=== PATIENT | male | born 1970 | race Caucasian/White ===

== ENCOUNTER 2016-08-26 10:41 | Day surgery (SDC) | payer BC, SELFPAY ==
[~2016-08-26 10:41] MED LIST: DIPRIVAN 200 MG/20 ML IV ONE; Ketamine HCl 50 MG/ML IV ONE; Versed 2 MG/2 ML Injection IV ONE
[2016-08-26] MEDS ORDERED: Lactated Ringers 1,000 ML IV ONE (10:45)
[2016-08-26] MEDS ORDERED: Lactated Ringers 1,000 ML IV SCH (11:00)
[2016-08-26 15:29] VITALS: BP 146/110; PULSE 79; O2SAT 98
--- NOTE | 2016-08-27 14:20 | OP ---
SURGERY DATE: 08/26/16 SURGERY TIME: 1339 PREOPERATIVE DIAGNOSIS: 1. DYSPHAGIA. POSTOPERATIVE DIAGNOSIS: 1. DYSPHAGIA. PROCEDURE: 1. EGD with balloon dilatation to size 25. SURGEON: Dakotah Hanson M.D. ANESTHESIA: MAC. COMPLICATIONS: None. CONDITION: Stable. INDICATION: 46 y/o with dysphagia. OPERATIVE PROCEDURE: Taken to endoscopy. Left lateral decubitus position. After suitable sedation obtained, scope introduced. He was a robust gentleman. He took a fair amount of anesthetic for MAC. The scope was tolerated satisfactory. There was a clear stricture of the esophagogastric junction which would not allow the scope. The size 50 balloon was taken up to the first stage. At 25, it was left there at 2 minutes. This had satisfactory retracture. There was a little bit of oozing. It was felt prudent to stop at this point today. The scope was then able to be passed. Fundus, body, antrum satisfactory. Pylorus satisfactory. Duodenal bulb satisfactory. Scope withdrawn. About a size 30-34 Finnish aperture was present at the esophagogastric junction at this time. Patient tolerated the procedure satisfactory with no complaints.
== END 2016-08-26 15:20 | disposition home or self-care (01) ==
LOC: SDC 10:41
PROVIDERS: ATTEND Surgery
PROC: 0D758ZZ Dilation of Esophagus, Via Natural or Artificial Opening Endoscopic (ICD-10-PCS; principal; 2016-08-26)
DX: R13.10 Dysphagia, unspecified (principal)
CPT/HCPCS: 00740; C1726; J2250; J2704

== ENCOUNTER 2016-11-25 10:03 | Day surgery (SDC) | payer BC, SELFPAY ==
--- NOTE | 2016-11-23 14:45 | HP ---
DATE OF SURGERY: 11/25/2016 ADMISSION DIAGNOSIS: Dysphasia, probable stricture. ANTICIPATED PROCEDURE: EGD with dilatation. HISTORY OF PRESENT ILLNESS: PAST MEDICAL HISTORY: ALLERGIES: NONE. MEDICATIONS: None. PAST SURGICAL HISTORY: None. SOCIAL HISTORY: Positive tobacco. Negative ETOH. FAMILY HISTORY: Negative. PHYSICAL EXAMINATION: VITAL SIGNS: Normal. CHEST: Clear. COR: Regular. IMPRESSION: Difficulty swallowing. PLAN: EGD possible dilatation.
[~2016-11-25 10:03] MED LIST changes: -Ketamine HCl 50 MG/ML IV ONE
[2016-11-25] MEDS ORDERED: Lactated Ringers 1,000 ML IV ONE (10:18)
[2016-11-25] MEDS ORDERED: Lactated Ringers 1,000 ML IV SCH (10:30)
[2016-11-25 15:16] VITALS: BP 158/83; PULSE 76; O2SAT 94
--- NOTE | 2016-11-26 08:05 | OP ---
SURGERY DATE/TIME: 11/25/2016 1325 PREOPERATIVE DIAGNOSIS: Dysphagia. POSTOPERATIVE DIAGNOSIS: Stricture. PROCEDURE: EGD with balloon dilatation with an director [employer] systems size 20 two-phase tube for one minute. SURGEON: Dakotah Hanson M.D. ANESTHESIA: MAC. COMPLICATIONS: None. CONDITION: Stable. INDICATION: The patient has known stricture previously dilated. DESCRIPTION OF PROCEDURE: Taken to surgery. MAC sedation provided. The scope introduced. Three cold biopsies were taken of the gastroesophageal junction. This was about a size 24, a size 20 director enterprise systems was chosen. Fundus, body, antrum, pylorus, duodenal bulb, second portion satisfactory. The scope withdrawn. There was a stricture that was visible from the retrograde view also. Three medical center representative biopsies of the slightly elevated tissue at the gastroesophageal junction were taken and submitted. Geriatric Physical Therapist was then placed. It was then insufflated to phase 1, insufflated to phase 2 for one minute. I believe the esophageal diameter at this time was about 40. The scope withdrawn. Mechanically it looked satisfactory.
== END 2016-11-25 15:00 | disposition home or self-care (01) ==
LOC: SDC 10:03
PROVIDERS: ATTEND Surgery
PROC: 0D748ZZ Dilation of Esophagogastric Junction, Via Natural or Artificial Opening Endoscopic (ICD-10-PCS; principal; 2016-11-25)
PROC: 0D748ZZ Dilation of Esophagogastric Junction, Via Natural or Artificial Opening Endoscopic (ICD-10-PCS; 2016-11-25)
DX: K22.2 Esophageal obstruction (principal); R13.10 Dysphagia, unspecified
CPT/HCPCS: 00740; 36415; 87081; 88305; C1726; J2250; J2704

== ENCOUNTER 2017-09-19 05:48 | Day surgery (SDC) | payer BC ==
[2017-09-19] MEDS ORDERED: DIPRIVAN 200 MG/20 ML IV ONE (05:49)
[2017-09-19] MEDS ORDERED: Lactated Ringers 1,000 ML IV SCH (06:00)
[2017-09-19 08:25] VITALS: O2SAT 92
[2017-09-19 08:45] VITALS: BP 146/70; PULSE 68
--- NOTE | 2017-09-19 11:42 | OP ---
SURGERY DATE/TIME: 09/19/2017716 PREOPERATIVE DIAGNOSIS: Left lower quadrant abdominal pain. POSTOPERATIVE DIAGNOSIS: Normal colon. PROCEDURE: Colonoscopy. SURGEON: Dr. Zhang. ANESTHESIA: MAC. Medications given by anesthesia department. HISTORY: The patient is a 47 year-old white male patient who reports that he has previously had upper and lower endoscopy and reports he has been having left lower quadrant abdominal pain which has been attributed to diverticulosis. The patient was felt the need to have endoscopic evaluation. He was appraised of the risks of the procedure including the risk of perforation, phlebitis, untoward reaction to medication, bleeding and missed lesions. The patient verbalized his understanding and desired to have the procedure performed. DESCRIPTION OF PROCEDURE: The patient was given the medications by the anesthesia department. He had continuous pulse oximetry, ECG monitoring, intermittent blood pressure monitoring and tidal CO2 monitoring during the examination. He was placed in the left lateral decubitus position. A digital rectal examination was performed and revealed normal anal sphincter tone and no masses and normal prostate. The flexible Olympus pediatric colonoscope was used to intubate the rectum. A view of the colon was developed sequentially to the cecum. Upon insertion and withdrawal, including a retroflex view in the rectum, no mucosal lesions were encountered. Specifically there was absent noted any significant diverticula. The scope was removed from the patient who tolerated the procedure well and was sent back to OP recovery in good condition. The prep was noted to be good.
== END 2017-09-19 08:35 | disposition home or self-care (01) ==
LOC: SDC 05:48
PROVIDERS: ATTEND Family Medicine
DX: R10.32 Left lower quadrant pain (principal)
CPT/HCPCS: J2704

== ENCOUNTER 2018-03-11 08:44 | Emergency (ER) | payer BC ==
[2018-03-11] MEDS ORDERED: TETRACAINE 0.5% STERI-UNIT SOL OP ONE (09:00)
[2018-03-11] MEDS ORDERED: Eye-Stream Solution ONE (09:00)
[2018-03-11] MEDS ORDERED: Fluor-I-Strip/Ful-Flo OP ONE ×2 (09:00→09:01)
[2018-03-11] MEDS ORDERED: Eye-Stream Solution OP ONE (09:01)
[2018-03-11] MEDS ORDERED: TETRACAINE 0.5% STERI-UNIT SOL OP STA (09:01)
[2018-03-11 09:10] VITALS: BP 153/102; PULSE 87; O2SAT 94
[2018-03-11] MEDS ORDERED: Ciloxan OPHTH OP ONE (09:15)
--- NOTE | 2018-03-11 09:25 | ERPHSYRPT ---
- History of Present Illness Time Seen by Provider: 03/11/18 09:02 Source: patient Exam Limitations: no limitations Patient Subjective Stated Complaint: woke up with left eye irritated. unknown injury Triage Nursing Assessment: alert and oriented. left eye red and irritated. denies injury. MARY Physician History: This is a 47-year-old white male with history of diverticulitis. He arrives with complaint of pain in his left eye feels as if there is a foreign body in his left eye symptoms since waking up this morning. Patient denies obvious injury he states he has not been running machines. Patient denies vision changes. Past medical history is positive for diverticulitis. Past surgical history negative. Social history positive for tobacco use Timing/Duration: today Location: left eye Severity: moderate Apparent Injury: no Associated Symptoms: pain, redness, foreign body sensation Visual Assistive Devices: None Chemical Exposure: No Trauma: No Welding Arc/Tanning Bed Exposure: No Allergies/Adverse Reactions: No Known Drug Allergies Allergy (Verified 09/15/17 17:56) Hx Tetanus, Diphtheria Vaccination/Date Given: Yes (unknown) Hx Influenza Vaccination/Date Given: No Hx Pneumococcal Vaccination/Date Given: No Immunizations Up to Date: (unknown) - Review of Systems Constitutional: No Fever, No Chills Eyes: Eye Pain, Eye Redness, Tearing, Foreign Body Sensation, Other (foreign- body sensation left eye), No Discharge, No Itchy, No Photophobia, No Vision Changes, No Double Vision Ears, Nose, & Throat: No Symptoms Respiratory: No Cough, No Dyspnea Cardiac: No Chest Pain, No Edema, No Syncope Abdominal/Gastrointestinal: No Abdominal Pain, No Nausea, No Vomiting, No Diarrhea Genitourinary Symptoms: No Dysuria Musculoskeletal: No Back Pain, No Neck Pain Skin: No Rash Neurological: No Dizziness, No Focal Weakness, No Sensory Changes Psychological: No Symptoms Endocrine: No Symptoms All Other Systems: Reviewed and Negative - Past Medical History Pertinent Past Medical History: Yes Neurological History: No Pertinent History ENT History: No Pertinent History Cardiac History: No Pertinent History Respiratory History: No Pertinent History Endocrine Medical History: No Pertinent History Musculoskeletal History: No Pertinent History GI Medical History: Diverticulitis History: No Pertinent History Psycho-Social History: No Pertinent History Male Reproductive Disorders: No Pertinent History Other Medical History: difficulty swallowing - Past Surgical History Past Surgical History: Yes Neuro Surgical History: No Pertinent History Cardiac: No Pertinent History Respiratory: No Pertinent History Gastrointestinal: No Pertinent History Genitourinary: No Pertinent History Musculoskeletal: No Pertinent History Male Surgical History: No Pertinent History Other Surgical History: egd with dilatation - Social History Smoking Status: Never smoker Exposure to second hand smoke: No Drug Use: none Patient Lives Alone: No - Nursing Vital Signs Nursing Vital Signs: Initial Vital Signs Temperature 98.2 F 03/11/18 09:01 Pulse Rate 87 03/11/18 09:01 Respiratory Rate 18 03/11/18 09:01 Blood Pressure 153/102 03/11/18 09:01 O2 Sat by Pulse Oximetry 94 L 03/11/18 09:01 Pain Scale Pain Intensity 5 - Physical Exam General Appearance: mild distress Vision Acuity Degree Evaluation Phase: Uncorrected Vision Acuity Right Eye: 20/20 Vision Acuity Left Eye: 20/20 Eye Exam: left eye: conjunctival inflammation, bilateral eye: PERRL, EOMI, other (eyes PERRLA, EOMI.fundi are unremarkable left sclera mildly erythematous left conjunctiva is erythematous both lids everted left eye. No foreign bodies, left eye stained with fluorosceine, no corneal abrasions) Ears, Nose, Throat Exam: normal ENT inspection Neck Exam: normal inspection Respiratory Exam: normal breath sounds Cardiovascular Exam: regular rate/rhythm Gastrointestinal Exam: soft, normal bowel sounds, No tenderness Extremity Exam: normal inspection, normal range of motion Neurologic: alert, oriented x 3, cooperative, life insurance agent II-XII nml as tested, normal mood/affect Skin Exam: normal color SpO2 Interpretation: normal (94%) SpO2: 94 Oxygen Delivery: Room Air - Course Nursing assessment & vital signs reviewed: Yes Ordered Tests: Active Orders 24 hr Category Date Time Status Visual Acuity STAT Care 03/11/18 09:01 Active Medication Summary Discontinued Medications Generic Name Dose Route Start Last Admin Trade Name Freq PRN Reason Stop Dose Admin Ciprofloxacin 2.5 ml 03/11/18 09:15 Ciloxan Ophth OP 03/11/18 09:16 STAT ONE Eye Irrigation Solution Confirm 03/11/18 09:00 Eye-Stream Solution Administered 03/11/18 09:01 Dose 30 ml .ROUTE .STK-MED ONE Eye Irrigation Solution 15 ml 03/11/18 09:01 03/11/18 09:28 Eye-Stream Solution OP 03/11/18 09:02 15 ml STAT ONE Administration Fluorescein Sodium Confirm 03/11/18 09:00 Cvnnj-I-Vpcab/Ful-Ronnie Administered 03/11/18 09:01 Dose 1 mg OP .STK-MED ONE Fluorescein Sodium 1 mg 03/11/18 09:01 03/11/18 09:28 Ucltk-F-Yhakd/Ful-Ronnie OP 03/11/18 09:02 1 mg STAT ONE Administration Tetracaine HCl Confirm 03/11/18 09:00 Tetracaine 0.5% Steri-Unit Tracy Administered 03/11/18 09:01 Dose 4 ml OP .STK-MED ONE Tetracaine HCl 4 ml 03/11/18 09:01 03/11/18 09:29 Tetracaine 0.5% Steri-Unit Tracy OP 03/11/18 09:02 4 ml STAT STA Administration - Progress Progress: improved Progress Note: 03/11/18 09:22 47-year-old white male who arrives with complaint of foreign body sensation pain in the left eye erythematous to the left eye. Patient states this has been going on since awaking this morning. He denies any injury to his eye he states he has not been running any machines. Patient states he rinsed his eye and put Visine in his left eye prior to arrival. On arrival Vision is checked by the patient's nurse vision is 20/20 bilaterally. Eyes PERRLA, EOMI fundi are unremarkable. Both eyes are soft with palpation through lids, Left sclera mildly injected left conjunctiva erythematous Both lids are everted left eye no foreign bodies are noted. Left eye anesthetized with 0.5% tetracaine to facilitate examination. Left eye stained with flouriscene, no corneal abrasions are noted. Left eye rinsed with sterile eyewash solution. Ciloxan drops ordered left eye. - Departure Time of Disposition: 09:25 Departure Disposition: Home Clinical Impression: foreign-body sensation left eye Conjunctivitis Qualifiers: Conjunctivitis type: acute Acute conjunctivitis type: bacterial Laterality: left Qualified Code(s): H10.32 - Unspecified acute conjunctivitis, left eye Condition: Fair Critical Care Time: No Referrals: CHARLEEN MARR [Primary Care Provider] - Additional Instructions: Return home. Ciloxan drops 0.3% one to 2 drops left eye 4 times a day 5 days. [place] as prescribed. Follow-up with your family doctor, air conditioning insulation installer, or customer support analyst if symptoms are worse, no better by tomorrow or persist longer than 48 hours. Return for acute distress or for severe symptoms. drive home with windows rolled up in the car. No reading, no TV watching, no computers, avoid eyestrain. Prescriptions: Hydrocodone/Acetaminophen [[place] 5-325 Tablet] 1 tab PO Q4-6HPRN PRN #10 tablet MDD 6 tablets PRN Reason: Pain
[2018-03-11] MEDS ORDERED: Ciloxan OPHTH ONE (09:30)
== END 2018-03-11 09:43 | disposition home or self-care (01) ==
LOC: ED 08:44
DX: H10.32 Unspecified acute conjunctivitis, left eye (principal); T15.82XA Foreign body in other and multiple parts of external eye, left eye, initial encounter
CPT/HCPCS: 99283; A9270-GY

== ENCOUNTER 2021-08-16 07:52 | Emergency (ER) | payer BC ==
[2021-08-16] MEDS ORDERED: Hydromorphone 1 mg/ml Injection IV ONE (08:06)
[2021-08-16] MEDS ORDERED: Reglan 10 MG/2 ML IV ONE (08:06)
[2021-08-16] MEDS ORDERED: Sodium Chloride 0.9% 1000 ML 1,000 ML IV STA (08:06)
[2021-08-16] MEDS ORDERED: Hydromorphone 1 mg/ml Injection ONE (08:27)
[2021-08-16] MEDS ORDERED: Reglan 10 MG/2 ML ONE (08:27)
[2021-08-16] MEDS ORDERED: Sodium Chloride 0.9% 1000 ML 1,000 ML ONE (08:27)
[2021-08-16 08:31] LABS: Absolute Neutrophil Ct (ANC) 9.33 (1.4-6.9); Basophil (Absolute #) 0.05 (0-0.4); Eosinophil % 2.5 % (0.00-5.0); Eosinophil (Absolute #) 0.31 (0-0.5); Hematocrit 45.9 % (42-50); Hemoglobin 15.8 gm/dl (12.5-18.0); Lymphocyte (Absolute #) 1.76 (1.0-4.6); Lymphocytes % 14.1 % (24.0-44.0); Mean Cell Volume 93.1 fl (78-100); Mean Corpuscular Hgb Concent. 34.4 g/dl (32-36); Mean Platelet Volume 9.9 fl (7.5-11.0); Monocyte (Absolute #) 1.05 (0.0-1.3); Monocytes % 8.4 % (0.0-12.0); Neutrophil % 74.6 % (36.0-66.0); Platelet Count 214 K/mm3 (150-450); Red Blood Count 4.93 M/mm3 (4.1-5.6); Red Cell Distribution Width 13.3 % (11.5-14.0); White Blood Count 12.5 K/mm3 (4.0-10.5)
[2021-08-16 08:36] LABS: Appearance CLEAR (CLEAR); Bilirubin NEGATIVE (NEGATIVE); Dipstick done @ ? MAIN LAB; Glucose NEGATIVE (NEGATIVE); Ketones NEGATIVE (NEGATIVE); Nitrite NEGATIVE (NEGATIVE); Protein,Urine Dip NEGATIVE (Negative); RBC NEGATIVE Ery/ul (0-5); Specific Gravity 1.025 (1.005-1.025); Urobilinogen 0.2 mg/dL (0-1)
[2021-08-16 08:37] LABS: INR 1.18 (0.8-3.0); PROTIME 13.9 SECONDS (9.4-12.5)
--- NOTE | 2021-08-16 08:38 | ERPHSYRPT ---
- History of Present Illness Time Seen by Provider: 08/16/21 08:00 Historian: patient Exam Limitations: no limitations Patient Subjective Stated Complaint: pt here for lower left abd pain and scrotal pain, no fever, no nausea, states was constipated but had bm yesterday Triage Nursing Assessment: pt alert, resp easy, skin w/d/p, abd soft ,large , round abd, Physician History: Patient is a 51-year-old white male who yesterday developed pain in his lower abdomen which radiated to the testicles. He also had pressure around the rectum and anus. He was severely constipated and he strained at stool. This morning he has left lower quadrant pain he has a history of diverticulitis. He denies any fever chills sweats nausea vomiting or diarrhea he does have nocturia 4-5 times per night and has not had a PSA checked or digital exam. Timing/Duration: yesterday Activities at Onset: none Quality: cramping, stabbing Abdominal Pain Onset Location: LLQ Severity of Pain-Max: moderate Severity of Pain-Current: moderate Modifying Factors: Improves With: defecating, urinating Associated Symptoms: testicular pain Previous symptoms: same symptoms as today Allergies/Adverse Reactions: No Known Drug Allergies Allergy (Verified 09/15/17 17:56) Hx Tetanus, Diphtheria Vaccination/Date Given: Yes (unknown) Hx Influenza Vaccination/Date Given: No Hx Pneumococcal Vaccination/Date Given: No Immunizations Up to Date: Yes Travel Risk - International Travel Have you traveled outside of the country in past 3 weeks: No - Coronavirus Screening Are you exhibiting any of the following symptoms?: No - Vaccine Status Have you recieved a Covid-19 vaccination: No - Review of Systems Constitutional: No Fever, No Chills Eyes: No Symptoms Ears, Nose, & Throat: No Symptoms Respiratory: No Cough, No Dyspnea Cardiac: No Chest Pain, No Edema, No Syncope Abdominal/Gastrointestinal: Abdominal Pain, Constipation, No Nausea, No Vomiting, No Diarrhea Genitourinary Symptoms: Frequency (Nocturia 4-5 times per night), Testicle Pain, No Dysuria Musculoskeletal: No Back Pain, No Neck Pain Skin: No Rash Neurological: No Dizziness, No Focal Weakness, No Sensory Changes Psychological: No Symptoms Endocrine: No Symptoms All Other Systems: Reviewed and Negative - Past Medical History Pertinent Past Medical History: Yes Neurological History: No Pertinent History ENT History: No Pertinent History Cardiac History: No Pertinent History Respiratory History: No Pertinent History Endocrine Medical History: No Pertinent History Musculoskeletal History: No Pertinent History GI Medical History: Diverticulitis History: No Pertinent History Psycho-Social History: No Pertinent History Male Reproductive Disorders: No Pertinent History Other Medical History: difficulty swallowing - Past Surgical History Past Surgical History: Yes Neuro Surgical History: No Pertinent History Cardiac: No Pertinent History Respiratory: No Pertinent History Gastrointestinal: No Pertinent History Genitourinary: No Pertinent History Musculoskeletal: No Pertinent History Male Surgical History: No Pertinent History Other Surgical History: egd with dilatation - Social History Smoking Status: Never smoker Exposure to second hand smoke: No Drug Use: none Patient Lives Alone: No - Nursing Vital Signs Nursing Vital Signs: Initial Vital Signs Temperature 97.9 F 08/16/21 07:56 Pulse Rate 82 08/16/21 07:56 Respiratory Rate 18 08/16/21 07:56 Blood Pressure 129/84 08/16/21 07:56 O2 Sat by Pulse Oximetry 95 08/16/21 07:56 Pain Scale Pain Intensity 2 - Physical Exam General Appearance: no apparent distress, alert Eye Exam: PERRL/EOMI, eyes nml inspection Ears, Nose, Throat Exam: normal ENT inspection, pharynx normal, moist mucous m embranes Neck Exam: normal inspection, non-tender, supple, full range of motion Respiratory Exam: normal breath sounds, lungs clear, No respiratory distress Cardiovascular Exam: regular rate/rhythm, normal heart sounds Gastrointestinal/Abdomen Exam: soft, tenderness, guarding (Tenderness guarding left lower quadrant), No mass Male Genitalia Exam: normal genitalia Back Exam: normal inspection, normal range of motion, No CVA tenderness, No vertebral tenderness Extremity Exam: normal inspection, normal range of motion, pelvis stable Neurologic Exam: alert, oriented x 3, cooperative, normal mood/affect, nml cerebellar function, sensation nml, No motor deficits Skin Exam: normal color, warm, dry SpO2 Interpretation: normal SpO2: 95 O2 Delivery: Room Air - CT Exams Abdomen/Pelvis CT Interpretation: Tele-radiologist Report Ordered Tests: Active Orders 24 hr Category Date Time Status IV Insertion STAT Care 08/16/21 08:06 Active ABDOMEN AND PELVIS W CONTRAST [CT] Stat Exams 08/16/21 08:51 Taken CHEST 1 VIEW (PORTABLE) Stat Exams 08/16/21 08:45 Taken AMYLASE Stat Lab 08/16/21 08:31 Completed CBC W DIFF Stat Lab 08/16/21 08:31 Completed CMP Stat Lab 08/16/21 08:31 Completed LIPASE Stat Lab 08/16/21 08:31 Completed Lactic Acid Stat Lab 08/16/21 08:06 Completed PROTIME WITH INR Stat Lab 08/16/21 08:31 Completed Prostate Specific Ag,Screen Stat Lab 08/16/21 08:31 Completed Medication Summary Generic Name Dose Route Start Last Admin Trade Name Freq PRN Reason Stop Dose Admin Ceftriaxone Sodium/Dextrose 1 g in 50 mls @ 100 mls/hr 08/16/21 09:39 Rocephin 1 Gm-D5w 50 Ml Bag IV 08/16/21 10:08 STAT STA Metronidazole 500 mg in 100 mls @ 200 mls/hr 08/16/21 09:40 Flagyl 500 Mg Ivpb IV 08/16/21 10:09 STAT STA Discontinued Medications Generic Name Dose Route Start Last Admin Trade Name Freq PRN Reason Stop Dose Admin Hydromorphone HCl 0.5 mg 08/16/21 08:06 08/16/21 08:30 Hydromorphone 1 Mg/1ml Inj 1 Mg/Ml Syringe IV 08/16/21 08:07 0.5 mg STAT ONE Administration Hydromorphone HCl Confirm 08/16/21 08:27 Hydromorphone 1 Mg/1ml Inj 1 Mg/Ml Syringe Administered 08/16/21 08:28 Dose 1 mg .ROUTE .STK-MED ONE Sodium Chloride 1,000 mls @ 999 mls/hr 08/16/21 08:06 08/16/21 09:34 Sodium Chloride 0.9% 1000 Ml IV 08/16/21 09:06 Infused .Q1H1M STA Infusion Sodium Chloride Confirm 08/16/21 08:27 Sodium Chloride 0.9% 1000 Ml Administered 08/16/21 08:28 Dose 1,000 mls @ ud .ROUTE .STK-MED ONE Metoclopramide HCl 10 mg 08/16/21 08:06 08/16/21 08:31 Metoclopramide Hcl 10 Mg/2 Ml Vial IV 08/16/21 08:07 10 mg STAT ONE Administration Metoclopramide HCl Confirm 08/16/21 08:27 Metoclopramide Hcl 10 Mg/2 Ml Vial Administered 08/16/21 08:28 Dose 10 mg .ROUTE .K-MED ONE Lab/Rad Data: Laboratory Result Diagrams 08/16/21 08:31 08/16/21 08:31 Laboratory Results 08/16/21 08/16/21 08/16/21 Range/Units 08:31 08:31 08:31 WBC 12.5 H (4.0-10.5) K/mm3 RBC 4.93 (4.1-5.6) M/mm3 Hgb 15.8 (12.5-18.0) gm/dl Hct 45.9 (42-50) % MCV 93.1 (78-100) fl MCH 32.0 (26-32) pg MCHC 34.4 (32-36) g/dl RDW 13.3 (11.5-14.0) % Plt Count 214 (150-450) K/mm3 MPV 9.9 (7.5-11.0) fl Gran % 74.6 H (36.0-66.0) % Eos # (Auto) 0.31 (0-0.5) Absolute Lymphs (auto) 1.76 (1.0-4.6) Absolute Monos (auto) 1.05 (0.0-1.3) Lymphocytes % 14.1 L (24.0-44.0) % Monocytes % 8.4 (0.0-12.0) % Eosinophils % 2.5 (0.00-5.0) % Basophils % 0.4 (0.0-0.4) % Absolute Granulocytes 9.33 H (1.4-6.9) Basophils # 0.05 (0-0.4) PT 13.9 H (9.4-12.5) SECONDS INR 1.18 (0.8-3.0) Sodium 139 (137-145) mmol/L Potassium 3.9 (3.5-5.1) mmol/L Chloride 104 (98-107) mmol/L Carbon Dioxide 23 (22-30) mmol/L Anion Gap 16.2 H (5-15) MEQ/L BUN 11 (9-20) mg/dL Creatinine 0.83 (0.66-1.25) mg/dL Estimated GFR > 60.0 ML/MIN Glucose 121 H (74-106) mg/dL Lactic Acid (0.4-2.0) Calcium 9.1 (8.4-10.2) mg/dL Total Bilirubin 0.80 (0.2-1.3) mg/dL AST 36 (17-59) U/L ALT 50 (0-50) U/L Alkaline Phosphatase 53 (38-126) U/L Serum Total Protein 7.4 (6.3-8.2) g/dL Albumin 4.3 (3.5-5.0) g/dL Amylase 66 (30-110) U/L Lipase 63 (23-300) U/L PSA Screen 1.110 (0-4) ng/mL Urinalys Dipstick Clnc Urine Color (YELLOW) Urine Appearance (CLEAR) Urine pH (5-6) Ur Specific [place] (1.005-1.025) POC Urine Protein Conf (Negative) Urine Ketones (NEGATIVE) Urine Nitrite (NEGATIVE) Urine Bilirubin (NEGATIVE) Urine Urobilinogen (0-1) mg/dL Urine Leukocytes (NEGATIVE) Urine WBC (Auto) (0-5) /HPF Urine RBC (Auto) (0-2) /HPF U Epithel Cells (Auto) (FEW) /HPF Urine Bacteria (Auto) (NEGATIVE) /HPF Urine RBC (0-5) Stanislav/ul Urine Mucus (Auto) (NEGATIVE) /HPF Ur Culture Indicated? Urine Glucose (NEGATIVE) mg/dL 08/16/21 08/16/21 Range/Units 08:25 08:06 WBC (4.0-10.5) K/mm3 RBC (4.1-5.6) M/mm3 Hgb (12.5-18.0) gm/dl Hct (42-50) % MCV (78-100) fl MCH (26-32) pg MCHC (32-36) g/dl RDW (11.5-14.0) % Plt Count (150-450) K/mm3 MPV (7.5-11.0) fl Gran % (36.0-66.0) % Eos # (Auto) (0-0.5) Absolute Lymphs (auto) (1.0-4.6) Absolute Monos (auto) (0.0-1.3) Lymphocytes % (24.0-44.0) % Monocytes % (0.0-12.0) % Eosinophils % (0.00-5.0) % Basophils % (0.0-0.4) % Absolute Granulocytes (1.4-6.9) Basophils # (0-0.4) PT (9.4-12.5) SECONDS INR (0.8-3.0) Sodium (137-145) mmol/L Potassium (3.5-5.1) mmol/L Chloride (98-107) mmol/L Carbon Dioxide (22-30) mmol/L Anion Gap (5-15) MEQ/L BUN (9-20) mg/dL Creatinine (0.66-1.25) mg/dL Estimated GFR ML/MIN Glucose (74-106) mg/dL Lactic Acid 1.4 (0.4-2.0) Calcium (8.4-10.2) mg/dL Total Bilirubin (0.2-1.3) mg/dL AST (17-59) U/L ALT (0-50) U/L Alkaline Phosphatase (38-126) U/L Serum Total Protein (6.3-8.2) g/dL Albumin (3.5-5.0) g/dL Amylase (30-110) U/L Lipase (23-300) U/L PSA Screen (0-4) ng/mL Urinalys Dipstick Clnc MAIN LAB Urine Color YELLOW (YELLOW) Urine Appearance CLEAR (CLEAR) Urine pH 6.0 (5-6) Ur Specific [place] 1.025 (1.005-1.025) POC Urine Protein Conf NEGATIVE (Negative) Urine Ketones NEGATIVE (NEGATIVE) Urine Nitrite NEGATIVE (NEGATIVE) Urine Bilirubin NEGATIVE (NEGATIVE) Urine Urobilinogen 0.2 (0-1) mg/dL Urine Leukocytes NEGATIVE (NEGATIVE) Urine WBC (Auto) NONE (0-5) /HPF Urine RBC (Auto) NONE (0-2) /HPF U Epithel Cells (Auto) NONE (FEW) /HPF Urine Bacteria (Auto) NONE (NEGATIVE) /HPF Urine RBC NEGATIVE (0-5) Stanislav/ul Urine Mucus (Auto) SLIGHT (NEGATIVE) /HPF Ur Culture Indicated? NO Urine Glucose NEGATIVE (NEGATIVE) mg/dL - Progress Progress: unchanged Progress Note: 08/16/21 09:46 Patient instructed to go on clear liquids for 2 to 3 days and complete the antibiotic course. For the diverticulitis - Departure Departure Disposition: Home Clinical Impression: Diverticulitis Condition: Stable Critical Care Time: No Referrals: NIRMAL SIFUENTES [Primary Care Provider] - Follow up/PCP as directed Instructions: Diverticulitis (DC) Prescriptions: Metronidazole 500 mg [Flagyl 500 MG] 500 mg PO TID #21 tablet Cephalexin Mh 500 mg [Keflex 500 mg] 500 mg PO QID #40 cap
[2021-08-16 08:41] LABS: Mucus SLIGHT /HPF (NEGATIVE); Urine Cultured Indicated? NO
[2021-08-16 09:19] LABS: ALBUMIN 4.3 g/dL (3.5-5.0); ALKALINE PHOSPHATASE 53 U/L (38-126); AMYLASE 66 U/L (30-110); ANION GAP 16.2 MEQ/L (5-15); BLOOD UREA NITROGEN 11 mg/dL (9-20); CHLORIDE 104 mmol/L (98-107); Calcium 9.1 mg/dL (8.4-10.2); Carbon Dioxide 23 mmol/L (22-30); Creatinine 1 0.83 mg/dL (0.66-1.25); EST GLOMERULAR FILTRATION RATE > 60.0 ML/MIN; Glucose 121 mg/dL (74-106); LIPASE 63 U/L (23-300); Potassium 3.9 mmol/L (3.5-5.1); SGOT/AST 36 U/L (17-59); SGPT/ALT 50 U/L (0-50); SODIUM 139 mmol/L (137-145); Total Protein 7.4 g/dL (6.3-8.2)
[2021-08-16] MEDS ORDERED: ROCEPHIN 1 Gm-D5w 50 ml Bag** 1 G/50 ML IVPB IV STA (09:39)
[2021-08-16] MEDS ORDERED: FLAGYL 500 MG IVPB 500 MG/100 ML BAG IV STA (09:40)
[2021-08-16] MEDS ORDERED: ROCEPHIN 1 Gm-D5w 50 ml Bag** 1 G/50 ML IVPB IV ONE (09:45)
[2021-08-16] MEDS ORDERED: FLAGYL 500 MG IVPB 500 MG/100 ML BAG IV ONE (09:45)
[2021-08-16 10:49] VITALS: BP 124/78; PULSE 75; O2SAT 98
--- NOTE | 2021-08-16 19:49 | XRAY ---
Indication: Abdomen pain. Comparison: November 09, 2017. Portable apical lordotic chest again demonstrates minimal left base fibrosis/scarring. Remaining heart and lungs unremarkable. Bony thorax intact again with mild osteopenia and degenerative changes. No new/acute findings.
--- NOTE | 2021-08-16 20:07 | XRAY ---
Indication: Left lower quadrant pain. History diverticulitis. Multiple contiguous axial images obtained through the abdomen and pelvis using 80 cc Isovue 370 contrast. Comparison: February 12, 2015. Lung bases again demonstrates minimal fibrosis/scarring. No infiltrate or effusion. Heart not enlarged. Noncontrasted stomach and bowel loops nonobstructed. Again descending and sigmoid diverticulosis. Sigmoid colon demonstrates mild wall thickening and stranding favoring diverticulitis. No free fluid/air. Stable fatty liver. Remaining liver, gallbladder, pancreas, spleen, adrenal glands, kidneys, ureters, bladder, and aorta are unremarkable. No pathologic retroperitoneal lymphadenopathy. Osseous structures intact again with minimal degenerative changes throughout the spine. Impression: 1. Again sigmoid diverticulitis without complications. 2. Stable fatty liver. Comment: Preliminary interpretation made by [facility]. No critical discrepancy.
== END 2021-08-16 10:52 | disposition home or self-care (01) ==
LOC: ED 07:52
DX: K57.92 Diverticulitis of intestine, part unspecified, without perforation or abscess without bleeding (principal); R10.32 Left lower quadrant pain; Z12.5 Encounter for screening for malignant neoplasm of prostate
CPT/HCPCS: 36415; 71045; 74177; 80053; 81015; 82150; 83605; 83690; 85025; 85610; 96360; 96365; 96367; 96374; 96375; 99284; G0103; J0696; J1170

== ENCOUNTER 2023-01-26 19:14 | Observation (INO) | payer BC, OTHER ==
[2023-01-26] MEDS ORDERED: Sodium Chloride 0.9% 1000 ML 1,000 ML IV STA (19:50)
[2023-01-26] MEDS ORDERED: Sodium Chloride 0.9% 1000 ML 1,000 ML ONE (19:56)
[2023-01-26 20:04] LABS: Absolute Neutrophil Ct (ANC) 10.49 x10^3/uL (1.4-6.9); BASOPHIL % 0.5 % (0.0-0.4); Basophil (Absolute #) 0.07 x10^3/uL (0-0.4); Eosinophil % 2.8 % (0.00-5.0); Eosinophil (Absolute #) 0.41 x10^3/uL (0-0.5); Hemoglobin 15.6 g/dL (12.5-18.0); IMMATURE GRAN # 0.06 x10^3u/L (0.00-0.03); IMMATURE GRAN % 0.4 % (0.00-0.4); Lymphocyte (Absolute #) 2.34 x10^3/uL (1.0-4.6); Mean Cell Volume 93.6 fL (78-100); Mean Corpuscular Hemoglobin 31.1 pg (26-32); Mean Corpuscular Hgb Concent. 33.2 g/dL (32-36); Mean Platelet Volume 9.6 fL (7.5-11.0); Monocyte (Absolute #) 1.23 x10^3/uL (0.0-1.3); Monocytes % 8.4 % (0.0-12.0); Neutrophil % 71.9 % (36.0-66.0); Platelet Count 251 x10^3/uL (150-450); Red Blood Count 5.02 x10^6/uL (4.1-5.6); Red Cell Distribution Width 13.1 % (11.5-14.0); White Blood Count 14.6 x10^3/uL (4.0-10.5)
[2023-01-26 20:12] LABS: Appearance Clear (Clear); Bacteria None Seen /HPF (None Seen); Bilirubin Negative (Negative); Blood Negative (Negative); Epithelial Cells None Seen /HPF (None Seen); Glucose, Urine Negative (Negative); Hyaline Casts NONE SEEN /LPF (0-2); Ketones Negative (Negative); Leukocyte Esterase Negative (Negative); Nitrite Negative (Negative); Protein,Urine Dip Negative (Negative); RBC 0-2 /HPF (0-5); Specific Gravity 1.015 (1.005-1.030); WBC 0-2 /HPF (0-5)
[2023-01-26 20:18] LABS: ADD URINE CULTURE? NO (NO)
[2023-01-26 20:19] LABS: ALBUMIN 4.7 g/dL (3.5-5.0); ALKALINE PHOSPHATASE 61 U/L (38-126); ANION GAP 15.6 MEQ/L (5-15); BLOOD UREA NITROGEN 14 mg/dL (9-20); CHLORIDE 100 mmol/L (98-107); Calcium 9.4 mg/dL (8.4-10.2); Carbon Dioxide 27 mmol/L (22-30); Creatinine 1 1.11 mg/dL (0.66-1.25); EST GLOMERULAR FILTRATION RATE > 60.0 ML/MIN; Glucose 92 mg/dL (74-106); SGOT/AST 37 U/L (17-59); SGPT/ALT 42 U/L (0-50); SODIUM 139 mmol/L (137-145); Total Protein 8.4 g/dL (6.3-8.2)
--- NOTE | 2023-01-26 21:16 | ERPHSYRPT ---
- History of Present Illness Time Seen by Provider: 01/26/23 19:40 Historian: patient Exam Limitations: no limitations Patient Subjective Stated Complaint: abd pain LLQ Triage Nursing Assessment: pt to ED c/o abd pain onset Tuesday and worsening sin ce then. pt rates 6/10 and up to 8/10 when sharp, radiates to mid abd at times. states he has been dx with diverticulitis for years and sees Dr. Zhang, eats appropriate diet to prevent falre ups but states that this feels like a flare up. Physician History: Patient is a 52-year-old male presents to our ED for evaluation of left lower quadrant pain that started 2 days ago. Patient admits to history of diverticulitis and feels that his symptoms are the same. Patient rates his pain 8 out of 10. Pain tends to radiate up towards the mid abdomen. No trauma. No fever. No nausea vomiting or diaphoresis. Symptoms are progressive. Symptoms are moderate in intensity. No specific worsening improving factors otherwise. Patient voices no other complaints or concerns at this time. Portions of this note were created with voice recognition technology. There may be grammatical, spelling, punctuation or sound alike errors Timing/Duration: day(s) (2 days) Activities at Onset: none Quality: aching Abdominal Pain Onset Location: LLQ Pain Radiation: other (Radiates to mid abdomen) Severity of Pain-Max: moderate Severity of Pain-Current: mild Modifying Factors: Improves With: palpation Associated Symptoms: denies symptoms Previous symptoms: same symptoms as today Allergies/Adverse Reactions: No Known Drug Allergies Allergy (Verified 09/15/17 17:56) Hx Tetanus, Diphtheria Vaccination/Date Given: Yes (unknown) Hx Influenza Vaccination/Date Given: No Hx Pneumococcal Vaccination/Date Given: No Travel Risk - International Travel Have you traveled outside of the country in past 3 weeks: No - Coronavirus Screening Are you exhibiting any of the following symptoms?: No Close contact with a COVID-19 positive Pt in past 14-21 Days: No - Vaccine Status Have you recieved a Covid-19 vaccination: No - Review of Systems Constitutional: No Symptoms, No Fever, No Chills Eyes: No Symptoms Ears, Nose, & Throat: No Symptoms Respiratory: No Symptoms, No Cough, No Dyspnea Cardiac: No Symptoms, No Chest Pain, No Edema, No Syncope Abdominal/Gastrointestinal: No Symptoms, No Abdominal Pain, No Nausea, No Vomiting, No Diarrhea Genitourinary Symptoms: No Symptoms, No Dysuria Musculoskeletal: No Symptoms, No Back Pain, No Neck Pain Skin: No Symptoms, No Rash Neurological: No Symptoms, No Dizziness, No Focal Weakness, No Sensory Changes Psychological: No Symptoms Endocrine: No Symptoms Hematologic/Lymphatic: No Symptoms Immunological/Allergic: No Symptoms All Other Systems: Reviewed and Negative - Past Medical History Pertinent Past Medical History: Yes Neurological History: No Pertinent History ENT History: No Pertinent History Cardiac History: No Pertinent History Respiratory History: No Pertinent History Endocrine Medical History: No Pertinent History Musculoskeletal History: No Pertinent History GI Medical History: Diverticulitis, GERD History: No Pertinent History Psycho-Social History: No Pertinent History Male Reproductive Disorders: No Pertinent History Other Medical History: difficulty swallowing - scar tissue d/t GERD - Past Surgical History Past Surgical History: Yes Neuro Surgical History: No Pertinent History Cardiac: No Pertinent History Respiratory: No Pertinent History Gastrointestinal: No Pertinent History Genitourinary: No Pertinent History Musculoskeletal: No Pertinent History Male Surgical History: No Pertinent History Other Surgical History: egd with dilatation - Social History Smoking Status: Never smoker Exposure to second hand smoke: No Drug Use: none Patient Lives Alone: No - Nursing Vital Signs Nursing Vital Signs: Initial Vital Signs Temperature 98.6 F 01/26/23 19:23 Pulse Rate 101 H 01/26/23 19:23 Respiratory Rate 18 01/26/23 19:23 Blood Pressure 161/97 01/26/23 19:23 O2 Sat by Pulse Oximetry 96 01/26/23 19:23 Pain Scale Pain Intensity 6 - Physical Exam General Appearance: no apparent distress, alert Eye Exam: PERRL/EOMI, eyes nml inspection Ears, Nose, Throat Exam: normal ENT inspection, pharynx normal, moist mucous membranes Neck Exam: normal inspection, non-tender, supple, full range of motion Respiratory Exam: normal breath sounds, lungs clear, No respiratory distress Cardiovascular Exam: regular rate/rhythm, normal heart sounds Gastrointestinal/Abdomen Exam: soft, No tenderness, No mass Back Exam: normal inspection, normal range of motion, No CVA tenderness, No ve rtebral tenderness Extremity Exam: normal inspection, normal range of motion, pelvis stable Neurologic Exam: alert, oriented x 3, cooperative, normal mood/affect, nml cerebellar function, sensation nml, No motor deficits Skin Exam: normal color, warm, dry SpO2: 93 - Course Nursing assessment & vital signs reviewed: Yes - CT Exams Abdomen/Pelvis CT Interpretation: Tele-radiologist Report (New 5 mm right middle lobe and left lower lobe noncalcified nodules. New 2.8 x 5.0 cm pericaval adenopathy. New moderate in mid sigmoid diverticulitis without complications. Stable fatty liver) Ordered Tests: Active Orders 24 hr Category Date Time Status IV Insertion STAT Care 01/26/23 19:50 Active ABDOMEN AND PELVIS W/0 CONTRAS [CT] Stat Exams 01/26/23 19:51 Taken CBC W DIFF Stat Lab 01/26/23 20:01 Completed CMP Stat Lab 01/26/23 20:01 Completed UA W/RFX UR CULTURE Stat Lab 01/26/23 19:53 Completed Transfer Order Routine Transfer 01/26/23 Ordered Medication Summary Discontinued Medications Generic Name Dose Route Start Last Admin Trade Name Freq PRN Reason Stop Dose Admin Sodium Chloride 1,000 mls @ 999 mls/hr 01/26/23 19:50 01/26/23 21:30 Sodium Chloride 0.9% 1000 Ml IV 01/26/23 20:50 Infused .Q1H1M STA Infusion Sodium Chloride Confirm 01/26/23 19:56 Sodium Chloride 0.9% 1000 Ml Administered 01/26/23 19:57 Dose 1,000 mls @ ud .ROUTE .STK-MED ONE Piperacillin Sod/Tazobactam 100 mls @ 200 mls/hr 01/26/23 21:17 01/26/23 21:30 Sod 3.375 gm/ Sodium Chloride IV 01/26/23 21:46 200 mls/hr STAT ONE Administration Sodium Chloride Confirm 01/26/23 21:29 Sodium Chloride 100ml Mini-Bag Plus Administered 01/26/23 21:30 Dose 100 mls @ ud IV .STK-MED ONE Morphine Sulfate 4 mg 01/26/23 21:33 01/26/23 21:46 Morphine Sulfate 4 Mg/Ml Injection IV 01/26/23 21:34 4 mg STAT ONE Administration Ondansetron HCl 4 mg 01/26/23 21:33 01/26/23 21:46 Ondansetron Hcl 4 Mg/2 Ml Vial IV 01/26/23 21:34 4 mg STAT ONE Administration Piperacillin Sod/Tazobactam Sod Confirm 01/26/23 21:29 Piperacillin/Tazobactam Sodium 3.375 Gm Vial Administered 01/26/23 21:30 Dose 3.375 gm IV .[facility] ONE Lab/Rad Data: Laboratory Result Diagrams 01/26/23 20:01 01/26/23 20:01 Laboratory Results 01/26/23 01/26/23 01/26/23 Range/Units 20:01 20:01 19:53 WBC 14.6 H (4.0-10.5) x10^3/uL RBC 5.02 (4.1-5.6) x10^6/uL Hgb 15.6 (12.5-18.0) g/dL Hct 47.0 (42-50) % MCV 93.6 (78-100) fL MCH 31.1 (26-32) pg MCHC 33.2 (32-36) g/dL RDW 13.1 (11.5-14.0) % Plt Count 251 (150-450) x10^3/uL MPV 9.6 (7.5-11.0) fL Gran % 71.9 H (36.0-66.0) % Immature Gran % (Auto) 0.4 (0.00-0.4) % Nucleat RBC Rel Count 0.0 (0.00-0.1) % Eos # (Auto) 0.41 (0-0.5) x10^3/uL Immature Gran # (Auto) 0.06 H (0.00-0.03) x10^3u/L Absolute Lymphs (auto) 2.34 (1.0-4.6) x10^3/uL Absolute Monos (auto) 1.23 (0.0-1.3) x10^3/uL Absolute Nucleated RBC 0.00 (0.00-0.01) x10^3u/L Lymphocytes % 16.0 L (24.0-44.0) % Monocytes % 8.4 (0.0-12.0) % Eosinophils % 2.8 (0.00-5.0) % Basophils % 0.5 (0.0-0.4) % Absolute Granulocytes 10.49 H (1.4-6.9) x10^3/uL Basophils # 0.07 (0-0.4) x10^3/uL Sodium 139 (137-145) mmol/L Potassium 4.0 (3.5-5.1) mmol/L Chloride 100 (98-107) mmol/L Carbon Dioxide 27 (22-30) mmol/L Anion Gap 15.6 H (5-15) MEQ/L BUN 14 (9-20) mg/dL Creatinine 1.11 (0.66-1.25) mg/dL Estimated GFR > 60.0 ML/MIN Glucose 92 (74-106) mg/dL Calcium 9.4 (8.4-10.2) mg/dL Total Bilirubin 1.10 (0.2-1.3) mg/dL AST 37 (17-59) U/L ALT 42 (0-50) U/L Alkaline Phosphatase 61 (38-126) U/L Serum Total Protein 8.4 H (6.3-8.2) g/dL Albumin 4.7 (3.5-5.0) g/dL Urine Color Yellow (Yellow) Urine Appearance Clear (Clear) Urine pH 6.0 (4.6-8.0) Ur Specific [place] 1.015 (1.005-1.030) Urine Protein Negative (Negative) Urine Glucose (UA) Negative (Negative) mg/dL Urine Ketones Negative (Negative) Urine Blood Negative (Negative) Urine Nitrite Negative (Negative) Urine Bilirubin Negative (Negative) Urine Urobilinogen 1.0 A (0.2) mg/dL Ur Leukocyte Esterase Negative (Negative) U Hyaline Cast (Auto) NONE SEEN (0-2) /LPF Urine Microscopic RBC 0-2 (0-5) /HPF Urine Microscopic WBC 0-2 (0-5) /HPF Ur Epithelial Cells None Seen (None Seen) /HPF Urine Bacteria None Seen (None Seen) /HPF Urine Culture Reflexed NO (NO) - Progress Progress: improved Progress Note: Patient is a 52-year-old male presents emergency department for evaluation of left lower quadrant pain. Patient has history of diverticulitis. Physical exam reveals tenderness to palpation left lower quadrant. No rebound. No peritoneal signs. Work-up entails CBC CMP. Patient has a leukocytosis of 14.6. Urinalysis negative for UTI. CT abdomen pelvis reveals a moderate mid sigmoid diverticulitis. No complications. Patient received morphine and Zofran. Morphine administered for pain control. Zofran administered for nausea. Patient received a liter of normal saline. Zosyn administered to initiate antibiotic treatment for the diverticulitis. Case discussed with Dr. Ryan at 9:[address] Ryan accepts admission to observation. Portions of this note were created with voice recognition technology. There may be grammatical, spelling, punctuation or sound alike errors Complexity of problem addressed is moderate acute complicated No critical care time Complexity of data reviewed and analyzed is extensive. Test ordered. Test reviewed and analyzed. Clinical correlation made between the findings of the laboratory studies imaging studies and history and physical examination. Plan of care/management discussed with Dr. Ryan who excepts admission to observation. Risk complication and or risk morbidity/mortality patient management is high. Patient received IV controlled medications/morphine for pain control. Patient will require hospitalization for further evaluation and treatment. Time spent to admit patient approximately 15 to 20 minutes. Diagnosis diverticulitis, abdominal pain and leukocytosis. Plan of care established for shared decision making. Patient agrees to admission to [facility] for further evaluation and treatment. Portions of this note were created with voice recognition technology. There may be grammatical, spelling, punctuation or sound alike errors 01/26/23 21:47 Discussed with : Mert Will see patient in: hospital (observation) Counseled pt/family regarding: lab results, diagnosis, rad results - Departure Departure Disposition: Observation Clinical Impression: Abdominal pain, Fatty liver, Sigmoid diverticulitis, Noncalcified lung nodules, Leukocytosis Condition: Stable Critical Care Time: No Referrals: NIRMAL ZHANG [Primary Care Provider] - Follow up/PCP as directed
[2023-01-26] MEDS ORDERED: PIPERACILLIN/TAZOBACTAM 3.375 GM in Sodium Chloride 100ML MINI-BAG PLUS 100 ML IV ONE (21:17)
[2023-01-26] MEDS ORDERED: Sodium Chloride 100ML MINI-BAG PLUS 100 ML IV ONE (21:29)
[2023-01-26] MEDS ORDERED: PIPERACILLIN/TAZOBACTAM IV ONE (21:29)
[2023-01-26] MEDS ORDERED: Zofran 4 MG/2 ML VIAL IV ONE (21:33)
[2023-01-26] MEDS ORDERED: MORPHINE SULFATE 4 MG INJ IV ONE (21:33)
[2023-01-26] MEDS ORDERED: Zofran 4 MG/2 ML VIAL ONE (21:45)
[2023-01-26] MEDS ORDERED: MORPHINE SULFATE 4 MG INJ ONE (21:45)
[2023-01-26] MEDS ORDERED: Zofran 4 MG/2 ML VIAL IV PRN (23:22)
[2023-01-26] MEDS ORDERED: TYLENOL 325 MG PO PRN (23:22)
[2023-01-26] MEDS ORDERED: MORPHINE SULFATE 2 MG INJ IV PRN (23:25)
[2023-01-27] MEDS ORDERED: PIPERACILLIN/TAZOBACTAM IV ONE ×2 (00:06→05:42)
[2023-01-27] MEDS ORDERED: Sodium Chloride 0.9% 1000 ML 1,000 ML ONE (00:07)
[2023-01-27] MEDS ORDERED: Sodium Chloride 100ML MINI-BAG PLUS 100 ML IV ONE ×2 (00:09→05:43)
[2023-01-27] MEDS: PIPERACILLIN/TAZOBACTAM 3.375 GM in Sodium Chloride 100ML MINI-BAG PLUS 100 ML IV SCH ×5 (00:26→23:43)
[2023-01-27] MEDS ORDERED: MORPHINE SULFATE 2 MG INJ ONE (03:11)
--- NOTE | 2023-01-27 03:24 | PCM.HP ---
History of Present Illness - Chief Complaint Chief Complaint: Diverticulitis Date: 01/26/23 History of Present Illness: is a 52 year old male with a prior history of 2 episodes of diverticulitis (April 2022, and another episode approximately 2 years ago; both treated as an outpatient) who presents to the hospital with left lower quadrant abdominal pain. The patient states that he generally tries to be compliant with a low residue diet, but he did state that he had some corn and "cowboy stew" (which contained beans) over the weekend about 4 days ago. 2 days prior to presentation, he began to experience the abdominal pain which has progressively worsened. There has been radiation to his umbilicus, and the pain has a sharp quality. The symptoms felt consistent with his prior diverticulitis episodes, so he presented to the hospital. His last bowel movement was at 07:00 on the day of presentation (normal consistency, nonbloody). He has been passing flatus. No fevers or chills were reported. - Review of Systems Constitutional: No Symptoms Eyes: No Symptoms Ears, Nose, & Throat: No Symptoms Respiratory: No Symptoms Cardiac: No Symptoms Abdominal/Gastrointestinal: Abdominal Pain Genitourinary Symptoms: No Symptoms Musculoskeletal: No Symptoms Skin: No Symptoms Neurological: No Symptoms Psychological: No Symptoms Endocrine: No Symptoms Hematologic/Lymphatic: No Symptoms Immunological/Allergic: No Symptoms All Other Systems: Reviewed and Negative Medications & Allergies Home Medications: Home Medication List No Reportable Medications [No Reported Medications] 01/26/23 [History Confirmed 01/26/23] Allergies/Adverse Reactions: Allergies Allergy/AdvReac Type Severity Reaction Status Date / Time No Known Drug Allergies Allergy Verified 01/26/23 21:52 - Past Medical History Past Medical History: Yes Neurological History: No Pertinent History ENT History: No Pertinent History Cardiac History: No Pertinent History Respiratory History: No Pertinent History Endocrine Medical History: No Pertinent History Musculoskelatal History: No Pertinent History GI Medical History: Diverticulitis, GERD History: No Pertinent History Pyscho-Social History: No Pertinent History Male Reproductive Disorders: No Pertinent History Comment: difficulty swallowing - scar tissue d/t GERD - Past Surgical History Past Surgical History: Yes Neuro Surgical History: No Pertinent History Cardiac History: No Pertinent History Respiratory Surgery: No Pertinent History GI Surgical History: No Pertinent History Genitourinary Surgical Hx: No Pertinent History Musculskeletal Surgical Hx: No Pertinent History Male Surgical History: No Pertinent History Other Surgical History: egd with dilatation - Social History Smoking Status: Never smoker Exposure to second hand smoke: No Alcohol: Occasionally Drug Use: none - Physical Exam Vital Signs: Vital Signs - 24 hr Temp Pulse Resp BP BP Pulse Ox 01/26/23 23:00 93 L 01/26/23 22:17 98.6 F 90 161/97 93 L 01/26/23 21:50 93 L 01/26/23 20:00 90 124/83 93 L 01/26/23 19:23 98.6 F 101 H 18 161/97 96 General Appearance: no apparent distress, alert Neurologic Exam: alert, oriented x 3, cooperative, medical logistics specialist II-XII nml as tested, normal mood/affect, nml cerebellar function Eye Exam: PERRL/EOMI, eyes nml inspection Ears, Nose, Throat Exam: normal ENT inspection Neck Exam: normal inspection, non-tender, supple, full range of motion Respiratory Exam: normal breath sounds, lungs clear Cardiovascular Exam: regular rate/rhythm, normal heart sounds Gastrointestinal/Abdomen Exam: soft, normal bowel sounds, tenderness (LLQ tenderness but no guarding, rigidity or peritoneal signs. Nondistended abdomen) Back Exam: normal range of motion Extremity Exam: normal inspection, normal range of motion Skin Exam: normal color Results - Labs Lab/Micro Results: Lab Results-Last 24 Hours 01/26/23 01/26/23 01/26/23 Range/Units 19:53 20:01 20:01 WBC 14.6 H (4.0-10.5) x10^3/uL RBC 5.02 (4.1-5.6) x10^6/uL Hgb 15.6 (12.5-18.0) g/dL Hct 47.0 (42-50) % MCV 93.6 (78-100) fL MCH 31.1 (26-32) pg MCHC 33.2 (32-36) g/dL RDW 13.1 (11.5-14.0) % Plt Count 251 (150-450) x10^3/uL MPV 9.6 (7.5-11.0) fL Gran % 71.9 H (36.0-66.0) % Immature Gran % (Auto) 0.4 (0.00-0.4) % Nucleat RBC Rel Count 0.0 (0.00-0.1) % Eos # (Auto) 0.41 (0-0.5) x10^3/uL Immature Gran # (Auto) 0.06 H (0.00-0.03) x10^3u/L Absolute Lymphs (auto) 2.34 (1.0-4.6) x10^3/uL Absolute Monos (auto) 1.23 (0.0-1.3) x10^3/uL Absolute Nucleated RBC 0.00 (0.00-0.01) x10^3u/L Lymphocytes % 16.0 L (24.0-44.0) % Monocytes % 8.4 (0.0-12.0) % Eosinophils % 2.8 (0.00-5.0) % Basophils % 0.5 (0.0-0.4) % Absolute Granulocytes 10.49 H (1.4-6.9) x10^3/uL Basophils # 0.07 (0-0.4) x10^3/uL Sodium 139 (137-145) mmol/L Potassium 4.0 (3.5-5.1) mmol/L Chloride 100 (98-107) mmol/L Carbon Dioxide 27 (22-30) mmol/L Anion Gap 15.6 H (5-15) MEQ/L BUN 14 (9-20) mg/dL Creatinine 1.11 (0.66-1.25) mg/dL Estimated GFR > 60.0 ML/MIN Glucose 92 (74-106) mg/dL Calcium 9.4 (8.4-10.2) mg/dL Total Bilirubin 1.10 (0.2-1.3) mg/dL AST 37 (17-59) U/L ALT 42 (0-50) U/L Alkaline Phosphatase 61 (38-126) U/L Serum Total Protein 8.4 H (6.3-8.2) g/dL Albumin 4.7 (3.5-5.0) g/dL Urine Color Yellow (Yellow) Urine Appearance Clear (Clear) Urine pH 6.0 (4.6-8.0) Ur Specific [place] 1.015 (1.005-1.030) Urine Protein Negative (Negative) Urine Glucose (UA) Negative (Negative) mg/dL Urine Ketones Negative (Negative) Urine Blood Negative (Negative) Urine Nitrite Negative (Negative) Urine Bilirubin Negative (Negative) Urine Urobilinogen 1.0 A (0.2) mg/dL Ur Leukocyte Esterase Negative (Negative) U Hyaline Cast (Auto) NONE SEEN (0-2) /LPF Urine Microscopic RBC 0-2 (0-5) /HPF Urine Microscopic WBC 0-2 (0-5) /HPF Ur Epithelial Cells None Seen (None Seen) /HPF Urine Bacteria None Seen (None Seen) /HPF Urine Culture Reflexed NO (NO) - Radiology Impressions Radiology Exams & Impressions: Radiology Procedures Category Date Time Status ABDOMEN AND PELVIS W/0 CONTRAS [CT] Stat Exams 01/26/23 19:51 Taken Assessment/Plan (1) Sigmoid diverticulitis Current Visit: Yes Status: Acute Assessment & Plan: IV antibiotics. CT scan official read will need to be reviewed, but preliminary interpretation consistent with sigmoid diverticulitis. NPO overnight with IV fluids, and will initiate clear liquid diet trial in AM. If able to tolerate dietary advancement, could potentially be discharged in the afternoon or evening. Since this is his third episode of diverticulitis in a 2 year span, there may need to be consideration of GI referral as an outpatient. Code(s): K57.32 - DVTRCLI OF LG INT W/O PERFORATION OR ABSCESS W/O BLEEDING (2) Abdominal pain Current Visit: Yes Status: Acute Assessment & Plan: Morphine prn for pain control. Code(s): R10.9 - UNSPECIFIED ABDOMINAL PAIN (3) Leukocytosis Current Visit: Yes Status: Acute Assessment & Plan: Noted on labs. Will continue antibiotics and trend. Code(s): D72.829 - ELEVATED WHITE BLOOD CELL COUNT, UNSPECIFIED Telemedicine Encounter - Telemedicine Encounter Telemedicine Encounter: The entirety of this encounter was performed via Telemedicine"
[2023-01-27 05:35] LABS: ANION GAP 13.1 MEQ/L (5-15); BLOOD UREA NITROGEN 14 mg/dL (9-20); CHLORIDE 101 mmol/L (98-107); Calcium 8.7 mg/dL (8.4-10.2); Carbon Dioxide 28 mmol/L (22-30); Creatinine 1 1.24 mg/dL (0.66-1.25); EST GLOMERULAR FILTRATION RATE > 60.0 ML/MIN; Glucose 103 mg/dL (74-106); Potassium 4.5 mmol/L (3.5-5.1); SODIUM 137 mmol/L (137-145)
[2023-01-27 05:37] LABS: Absolute Neutrophil Ct (ANC) 9.08 x10^3/uL (1.4-6.9); BASOPHIL % 0.6 % (0.0-0.4); Basophil (Absolute #) 0.08 x10^3/uL (0-0.4); Eosinophil % 3.7 % (0.00-5.0); Eosinophil (Absolute #) 0.46 x10^3/uL (0-0.5); Hematocrit 42.6 % (42-50); Hemoglobin 14.3 g/dL (12.5-18.0); IMMATURE GRAN # 0.05 x10^3u/L (0.00-0.03); IMMATURE GRAN % 0.4 % (0.00-0.4); Lymphocyte (Absolute #) 1.41 x10^3/uL (1.0-4.6); Lymphocytes % 11.4 % (24.0-44.0); Mean Cell Volume 92.4 fL (78-100); Mean Corpuscular Hgb Concent. 33.6 g/dL (32-36); Mean Platelet Volume 9.4 fL (7.5-11.0); Monocyte (Absolute #) 1.29 x10^3/uL (0.0-1.3); Monocytes % 10.4 % (0.0-12.0); Neutrophil % 73.5 % (36.0-66.0); Platelet Count 211 x10^3/uL (150-450); Red Blood Count 4.61 x10^6/uL (4.1-5.6); Red Cell Distribution Width 13.3 % (11.5-14.0); White Blood Count 12.4 x10^3/uL (4.0-10.5)
--- NOTE | 2023-01-27 05:48 | PCM.NOTE ---
Date and Time: 01/27/23 0545 Subjective Assessment: is a 52 year old male with a prior history of 2 episodes of diverticulitis (April 2022, and another episode approximately 2 years ago; both treated as an outpatient) presented to ED 01/26/23 with left lower quadrant abdominal pain, admitted for sigmoid diverticulitis. The patient stated that he generally tries to be compliant with a low residue diet, but he did state that he had some corn and "cowboy stew" (which contained beans) over the weekend about 4 days ago. 2 days prior to presentation, he began to experience the abdominal pain which has progressively worsened. There has been radiation to his umbilicus, and the pain has a sharp quality. The symptoms felt consistent with his prior diverticulitis episodes, so he presented to the hospital. His last bowel movement was at 07:00 on the day of presentation (normal consistency, nonbloody). He has been passing flatus. No fevers or chills were reported. CT imaging showing diverticulosis with new mid sigmoid diverticulitis, pericaval lymphadenopathy and small mesenteric lymph nodes which could be reactive vs malignancy, patient to follow up op for evaluation. Incidental fatty liver. Patient continues to endorse LLQ abdominal pain which is sharp in characteristic and positional. Patient currently tolerating a CLD. Denies fever,cough, sob, cp, MIGUEL, dizziness, N/V/D. - Review of Systems Constitutional: No Symptoms Eyes: No Symptoms Ears, Nose, & Throat: No Symptoms Respiratory: No Symptoms Cardiac: No Symptoms Abdominal/Gastrointestinal: Abdominal Pain (LLQ Sharp) Genitourinary Symptoms: No Symptoms Musculoskeletal: No Symptoms Skin: No Symptoms Neurological: No Symptoms Endocrine: No Symptoms Hematologic/Lymphatic: No Symptoms Immunological/Allergic: No Symptoms Objective Exam General Appearance: no apparent distress Neurologic Exam: alert, oriented x 3, cooperative Skin Exam: normal color Eye Exam: PERRL Ears, Nose, Throat Exam: normal ENT inspection Neck Exam: normal inspection Respiratory Exam: wheezing (exp) Gastrointestinal/Abdomen Exam: soft, normal bowel sounds, tenderness (LLQ) Extremity Exam: normal inspection Back Exam: normal inspection OBJECTIVE DATA Vital Signs: Vital Signs - 24 hr Temp Pulse Resp BP BP Pulse Ox 01/27/23 04:00 97.8 F 92 H 20 126/73 90 L 09/13/23 23:00 93 L 01/26/23 22:17 98.6 F 90 161/97 93 L 01/26/23 21:50 93 L 01/26/23 20:00 90 124/83 93 L 01/26/23 19:23 98.6 F 101 H 18 161/97 96 Pain Assessment - Last Documented Pain Intensity 7 Pain Scale Used 0-10 Pain Scale Intake and Output: Intake & Output 01/24/23 01/25/23 01/26/23 01/27/23 11:59 11:59 11:59 11:59 Intake Total 400 Balance 400 Weight 146.4 kg Lab Results: Lab Results-Last 24 Hours 01/26/23 01/26/23 01/26/23 Range/Units 19:53 20:01 20:01 WBC 14.6 H (4.0-10.5) x10^3/uL RBC 5.02 (4.1-5.6) x10^6/uL Hgb 15.6 (12.5-18.0) g/dL Hct 47.0 (42-50) % MCV 93.6 (78-100) fL MCH 31.1 (26-32) pg MCHC 33.2 (32-36) g/dL RDW 13.1 (11.5-14.0) % Plt Count 251 (150-450) x10^3/uL MPV 9.6 (7.5-11.0) fL Gran % 71.9 H (36.0-66.0) % Immature Gran % (Auto) 0.4 (0.00-0.4) % Nucleat RBC Rel Count 0.0 (0.00-0.1) % Eos # (Auto) 0.41 (0-0.5) x10^3/uL Immature Gran # (Auto) 0.06 H (0.00-0.03) x10^3u/L Absolute Lymphs (auto) 2.34 (1.0-4.6) x10^3/uL Absolute Monos (auto) 1.23 (0.0-1.3) x10^3/uL Absolute Nucleated RBC 0.00 (0.00-0.01) x10^3u/L Lymphocytes % 16.0 L (24.0-44.0) % Monocytes % 8.4 (0.0-12.0) % Eosinophils % 2.8 (0.00-5.0) % Basophils % 0.5 (0.0-0.4) % Absolute Granulocytes 10.49 H (1.4-6.9) x10^3/uL Basophils # 0.07 (0-0.4) x10^3/uL Sodium 139 (137-145) mmol/L Potassium 4.0 (3.5-5.1) mmol/L Chloride 100 (98-107) mmol/L Carbon Dioxide 27 (22-30) mmol/L Anion Gap 15.6 H (5-15) MEQ/L BUN 14 (9-20) mg/dL Creatinine 1.11 (0.66-1.25) mg/dL Estimated GFR > 60.0 ML/MIN Glucose 92 (74-106) mg/dL Calcium 9.4 (8.4-10.2) mg/dL Total Bilirubin 1.10 (0.2-1.3) mg/dL AST 37 (17-59) U/L ALT 42 (0-50) U/L Alkaline Phosphatase 61 (38-126) U/L Serum Total Protein 8.4 H (6.3-8.2) g/dL Albumin 4.7 (3.5-5.0) g/dL Urine Color Yellow (Yellow) Urine Appearance Clear (Clear) Urine pH 6.0 (4.6-8.0) Ur Specific [place] 1.015 (1.005-1.030) Urine Protein Negative (Negative) Urine Glucose (UA) Negative (Negative) mg/dL Urine Ketones Negative (Negative) Urine Blood Negative (Negative) Urine Nitrite Negative (Negative) Urine Bilirubin Negative (Negative) Urine Urobilinogen 1.0 A (0.2) mg/dL Ur Leukocyte Esterase Negative (Negative) U Hyaline Cast (Auto) NONE SEEN (0-2) /LPF Urine Microscopic RBC 0-2 (0-5) /HPF Urine Microscopic WBC 0-2 (0-5) /HPF Ur Epithelial Cells None Seen (None Seen) /HPF Urine Bacteria None Seen (None Seen) /HPF Urine Culture Reflexed NO (NO) Radiology Exams: Radiology Procedures Category Date Time Status ABDOMEN AND PELVIS W/0 CONTRAS [CT] Stat Exams 01/26/23 19:51 Taken Assessment/Plan (1) Sigmoid diverticulitis Current Visit: Yes Status: Acute Assessment & Plan: - Continue Zosyn, PPI, pro-biotic -Since this is his third episode of diverticulitis in a 2 year span, there may need to be consideration of GI referral as an outpatient -CLD ADAT -Advised metamucil on discharge -Supportive care with pain control Code(s): K57.32 - DVTRCLI OF LG INT W/O PERFORATION OR ABSCESS W/O BLEEDING (2) Lymphadenopathy, abdominal Current Visit: Yes Status: Acute Assessment & Plan: -CT imaging reviewed noting Pericaval lymphadenopathy and small mesenteric lymph nodes either reactive versus malignancy - will need follow up on OP basis with PCP/ heme/onc Code(s): R59.0 - LOCALIZED ENLARGED LYMPH NODES (3) Abdominal pain Current Visit: Yes Status: Acute Assessment & Plan: Morphine prn for pain control. Code(s): R10.9 - UNSPECIFIED ABDOMINAL PAIN (4) Leukocytosis Current Visit: Yes Status: Acute Assessment & Plan: Noted on labs. Will continue antibiotics and trend, improving 12.4<14.6 Code(s): D72.829 - ELEVATED WHITE BLOOD CELL COUNT, UNSPECIFIED
[2023-01-27] MEDS: Hydromorphone 1 mg/ml Injection IV PRN ×3 (05:54→16:34)
--- NOTE | 2023-01-27 08:50 | XRAY ---
Indication: Left lower quadrant pain. History diverticulitis. Multiple contiguous axial images obtained through the abdomen and pelvis without contrast. Comparison: August 16, 2021 Lung bases again demonstrate scattered fibrosis/scarring. Right middle lobe now demonstrates 5 mm and 6 mm noncalcified nodules. Left lower lobe now demonstrates 5 mm subpleural noncalcified nodule. Above micronodules are indeterminant. Heart not enlarged. Noncontrasted stomach and bowel loops appear nonobstructed again with normal appendix. There remains mild scattered descending and sigmoid diverticulosis. Mid sigmoid colon now demonstrates short segment of moderate bowel wall thickening and stranding favoring diverticulitis. No free fluid/air. There is now 2.8 x 5.0 cm lymphadenopathy interposed between IVC and portal vein with smaller centimeter/subcentimeter mesenteric root lymph nodes either reactive versus primary/metastatic malignancy. Stable fatty liver. Remaining liver, gallbladder, pancreas, spleen, adrenal glands, kidneys, ureters, and bladder are unremarkable for noncontrast exam. There are now minimal aortoiliac calcifications without AAA. Osseous structures intact again with minimal degenerative changes throughout the visualized spine. Impression: 1. Again colonic diverticulosis with new mid sigmoid diverticulitis. No complications. 2. Pericaval lymphadenopathy and small mesenteric lymph nodes either reactive versus malignancy. 3. 2 right middle lobe and 1 left lower lobe indeterminant noncalcified nodules. Findings too small for PET/CT. Consider baseline CT chest with follow-up per Fleischner guidelines. 4. Incidental fatty liver and multilevel degenerative spondylosis.
[2023-01-27] MEDS: Protonix 40MG Tablet PO SCH (09:35)
[2023-01-27] MEDS: Acidophilus TABLET PO SCH (09:35)
[2023-01-27] MEDS: ENOXAPARIN SODIUM SQ SCH (09:35)
[2023-01-28] MEDS: PIPERACILLIN/TAZOBACTAM 3.375 GM in Sodium Chloride 100ML MINI-BAG PLUS 100 ML IV SCH ×2 (05:40→11:16)
[2023-01-28 08:12] VITALS: TEMP 98; O2SAT 96
[2023-01-28 08:30] LABS: Hematocrit 43.1 % (42-50); Hemoglobin 14.3 g/dL (12.5-18.0); Mean Cell Volume 93.9 fL (78-100); Mean Corpuscular Hemoglobin 31.2 pg (26-32); Mean Corpuscular Hgb Concent. 33.2 g/dL (32-36); Mean Platelet Volume 9.2 fL (7.5-11.0); Platelet Count 199 x10^3/uL (150-450); Red Blood Count 4.59 x10^6/uL (4.1-5.6); Red Cell Distribution Width 12.8 % (11.5-14.0); White Blood Count 8.2 x10^3/uL (4.0-10.5)
[2023-01-28 08:45] LABS: ALBUMIN 4.3 g/dL (3.5-5.0); ALKALINE PHOSPHATASE 54 U/L (38-126); ANION GAP 15.7 MEQ/L (5-15); BLOOD UREA NITROGEN 14 mg/dL (9-20); CHLORIDE 100 mmol/L (98-107); Calcium 8.9 mg/dL (8.4-10.2); Carbon Dioxide 27 mmol/L (22-30); Creatinine 1 1.09 mg/dL (0.66-1.25); EST GLOMERULAR FILTRATION RATE > 60.0 ML/MIN; Glucose 89 mg/dL (74-106); Potassium 4.2 mmol/L (3.5-5.1); SGOT/AST 35 U/L (17-59); SGPT/ALT 36 U/L (0-50); SODIUM 138 mmol/L (137-145); Total Protein 7.9 g/dL (6.3-8.2)
[2023-01-28] MEDS: Protonix 40MG Tablet PO SCH (10:02)
[2023-01-28] MEDS: Acidophilus TABLET PO SCH (10:02)
[2023-01-28] MEDS: ENOXAPARIN SODIUM SQ SCH ×2 (10:02→10:05)
--- NOTE | 2023-01-28 11:26 | PCM.DS ---
Discharge Summary Date of Admission: 01/26/23 22:12 Date of Discharge: 01/28/23 Admitting Physician: ELZA WHITAKER MD Primary Care Provider: NIRMAL SIFUENTES Allergies Allergies No Known Drug Allergies Allergy (Verified 01/26/23 21:52) Hospital Summary - Hospital Course Hospital Course: is a 52 year old male with a prior history of 2 episodes of diverticulitis (April 2022, and another episode approximately 2 years ago; both treated as an outpatient) presented to ED 01/26/23 with left lower quadrant abdominal pain, admitted for sigmoid diverticulitis. The patient stated that he generally tries to be compliant with a low residue diet, but he did state that he had some corn and "cowboy stew" (which contained beans) over the weekend ab out 4 days ago. 2 days prior to presentation, he began to experience the abdominal pain which has progressively worsened. There has been radiation to his umbilicus, and the pain has a sharp quality. The symptoms felt consistent with his prior diverticulitis episodes, so he presented to the hospital. His last bowel movement was at 07:00 on the day of presentation (normal consistency, nonbloody). He has been passing flatus. No fevers or chills were reported. CT imaging showing diverticulosis with new mid sigmoid diverticulitis, pericaval lymphadenopathy and small mesenteric lymph nodes which could be reactive vs malignancy, patient to follow up op for evaluation. Incidental fatty liver. Patient continues to endorse LLQ abdominal pain which is sharp in characteristic and positional. Patient currently tolerating advance in diet and would like to go home today. Denies fever,cough, sob, cp, MIGUEL, dizziness, N/V/D. Education provided when home to eat a high fiber diet, and try taking metamucil at bedtime every night. Would like pt to f/u OP with GI. - Vitals & Intake/Output Vital Signs: Vital Signs Temperature 98.0 F 01/28/23 08:00 Pulse Rate 67 01/28/23 08:00 Respiratory Rate 17 01/28/23 08:00 Blood Pressure 121/76 01/28/23 08:00 O2 Sat by Pulse Oximetry 96 01/28/23 08:00 Intake & Output: Intake & Output 01/25/23 01/26/23 01/27/23 01/28/23 11:59 11:59 11:59 11:59 Intake Total 400 2180 Balance 400 2180 Weight 146.4 kg - Lab Result Diagrams: 01/28/23 08:26 01/28/23 08:26 Lab Results-Last 24 Hrs: Lab Results-Last 24 Hours 01/28/23 01/28/23 Range/Units 08:26 08:26 WBC 8.2 (4.0-10.5) x10^3/uL RBC 4.59 (4.1-5.6) x10^6/uL Hgb 14.3 (12.5-18.0) g/dL Hct 43.1 (42-50) % MCV 93.9 (78-100) fL MCH 31.2 (26-32) pg MCHC 33.2 (32-36) g/dL RDW 12.8 (11.5-14.0) % Plt Count 199 (150-450) x10^3/uL MPV 9.2 (7.5-11.0) fL Sodium 138 (137-145) mmol/L Potassium 4.2 (3.5-5.1) mmol/L Chloride 100 (98-107) mmol/L Carbon Dioxide 27 (22-30) mmol/L Anion Gap 15.7 H (5-15) MEQ/L BUN 14 (9-20) mg/dL Creatinine 1.09 (0.66-1.25) mg/dL Estimated GFR > 60.0 ML/MIN Glucose 89 (74-106) mg/dL Calcium 8.9 (8.4-10.2) mg/dL Total Bilirubin 1.50 H (0.2-1.3) mg/dL AST 35 (17-59) U/L ALT 36 (0-50) U/L Alkaline Phosphatase 54 (38-126) U/L Serum Total Protein 7.9 (6.3-8.2) g/dL Albumin 4.3 (3.5-5.0) g/dL - Radiology Exams Ordered Rad Exams-Entire Visit: Radiology Procedures Category Date Time Status ABDOMEN AND PELVIS W/0 CONTRAS [CT] Stat Exams 01/26/23 19:51 Completed Discharge Exam General Appearance: no apparent distress, alert Neurologic Exam: alert, oriented x 3, cooperative, normal mood/affect, nml cerebellar function, sensation nml, No motor deficits Eye Exam: PERRL, EOMI, eyes nml inspection Ears, Nose, Throat Exam: normal ENT inspection, pharynx normal, moist mucous membranes Neck Exam: normal inspection, non-tender, supple, full range of motion Respiratory Exam: normal breath sounds, lungs clear, No respiratory distress Cardiovascular Exam: regular rate/rhythm, normal heart sounds Gastrointestinal/Abdomen Exam: soft, tenderness (LLQ positional pain, pain incre ased when standing or walking.), No mass Male Genitalia Exam: deferred Rectal Exam: deferred Back Exam: normal inspection, normal range of motion, No CVA tenderness, No vertebral tenderness Extremity Exam: normal inspection, normal range of motion Skin Exam: normal color, warm, dry Final Diagnosis/Problem List - Final Discharge Diagnosis/Problem (1) Sigmoid diverticulitis Current Visit: Yes Status: Acute Assessment & Plan: - Continue Zosyn, PPI, pro-biotic -Since this is his third episode of diverticulitis in a 2 year span, there may need to be consideration of GI referral as an outpatient -CLD ADAT -Advised metamucil on discharge -Supportive care with pain control 01/28 - d/c home with Cipro and flagyl Code(s): K57.32 - DVTRCLI OF LG INT W/O PERFORATION OR ABSCESS W/O BLEEDING (2) Abdominal pain Current Visit: Yes Status: Acute Assessment & Plan: - no longer wanting pain medication - Sxs improving, pain positional with standing or walking only. Code(s): R10.9 - UNSPECIFIED ABDOMINAL PAIN (3) Fatty liver Current Visit: Yes Status: Acute Assessment & Plan: - As seen on CT results - F/u OP with GI Code(s): K76.0 - FATTY (CHANGE OF) LIVER, NOT ELSEWHERE CLASSIFIED (4) Leukocytosis Current Visit: Yes Status: Acute Assessment & Plan: - resolved Code(s): D72.829 - ELEVATED WHITE BLOOD CELL COUNT, UNSPECIFIED (5) Lymphadenopathy, abdominal Current Visit: Yes Status: Acute Assessment & Plan: -CT imaging reviewed noting Pericaval lymphadenopathy and small mesenteric lymph nodes either reactive versus malignancy -Will need to f/u OP with PCP Code(s): R59.0 - LOCALIZED ENLARGED LYMPH NODES (6) Lung nodule seen on imaging study Current Visit: Yes Status: Acute Assessment & Plan: - As seen on CT of abd and pelvis results: Impression: 1. Again colonic diverticulosis with new mid sigmoid diverticulitis. No complications. 2. Pericaval lymphadenopathy and small mesenteric lymph nodes either reactive versus malignancy. 3. 2 right middle lobe and 1 left lower lobe indeterminant noncalcified nodules. Findings too small for PET/CT. Consider baseline CT chest with follow-up per Fleischner guidelines. 4. Incidental fatty liver and multilevel degenerative spondylosis. - F/u OP with PCP for further evaluation- consider pulm referral if needed Code(s): R91.1 - SOLITARY PULMONARY NODULE - Discharge Discharge Date: 01/28/23 Disposition: Home, Self-Care Condition: Stable Prescriptions: New Ciprofloxacin [Cipro 500 MG] 500 mg PO BID 7 Days #14 tablet Follow up with: NIRMAL SIFUENTES [Primary Care Provider] -
[2023-01-28 11:47] VITALS: BP 127/76; PULSE 68; RESP 18
== END 2023-01-28 13:25 | disposition home or self-care (01) ==
LOC: ED 19:14 → MED SURG 22:12
PROVIDERS: ADMIT Internal Medicine; ATTEND Internal Medicine
DX: K57.32 Diverticulitis of large intestine without perforation or abscess without bleeding (principal); R10.9 Unspecified abdominal pain; K76.0 Fatty (change of) liver, not elsewhere classified; D72.829 Elevated white blood cell count, unspecified; R59.0 Localized enlarged lymph nodes; R91.1 Solitary pulmonary nodule; Z79.899 Other long term (current) drug therapy; Z20.828 Contact with and (suspected) exposure to other viral communicable diseases
CPT/HCPCS: 36000; 36415; 74176; 80048; 80053; 81001; 85025; 85027; 96360; 96365; 96374; 96375; 99284; Q3014; 96376; G0378; J1170; J1650; J2270; J2405; A9270-GY